=== PATIENT | male | born 1985 | race Hispanic/Latino ===

== ENCOUNTER 2022-04-26 14:45 | Emergency (ER) | payer OTHER ==
[~2022-04-26] VITALS: Ht 172.7 cm; Wt 81.6 kg
[2022-04-26 16:30] VITALS: BP 145/91
== END 2022-04-26 17:46 | disposition left against medical advice (07) ==
LOC: EDH 14:45
DX: L02.31 Cutaneous abscess of buttock (principal); Z53.21 Procedure and treatment not carried out due to patient leaving prior to being seen by health care provider

== ENCOUNTER 2022-06-11 23:48 | Emergency (ER) | payer OTHER ==
[2022-06-12] MEDS ORDERED: IBUP-1493 PO (01:17)
[2022-06-12] MEDS ORDERED: AMOX1TAB16 PO (01:17)
[2022-06-12] MEDS ORDERED: VANCOMYCIN 1G/250ML KIT 250 ML IV ONE ×2 (01:30→02:10)
[2022-06-12] MEDS ORDERED: 0.9%NACL 1000ML 2,500 ML IV ONE (01:30)
[2022-06-12] MEDS ORDERED: ZOSYN 3.375GM +NS 50ML IVPB ONE (01:30)
[2022-06-12] MEDS ORDERED: KETOROLAC 30MG VIAL (30MG/ML) ONE (02:11)
[2022-06-12 02:15] LABS: BASOPHILS % (AUTO) 0.5 % (0.0-5.0); EOSINOPHILS % (AUTO) 1.3 % (0.0-8.0); HEMATOCRIT 50.8 % (42-54); LYMPHOCYTES % (AUTO) 14.7 % (21.0-51.0); MEAN CORPUSCULAR HEMOGLOBIN 30.1 pg (27.0-33.0); MEAN CORPUSCULAR HGB CONC 33.9 g/dL (32.0-36.0); MONOCYTES % (AUTO) 5.4 % (3.0-13.0); NEUTROPHILS % (AUTO) 77.6 % (40.0-77.0); PLATELET COUNT (AUTO) 360 K/uL (130-400); RED BLOOD CELL COUNT(AUTO) 5.71 MIL/uL (4.50-6.20); RED CELL DISTRIBUTION WIDTH 11.9 % (11.0-15.5); WHITE BLOOD COUNT (AUTO) 15.2 K/uL (4.8-10.8)
[2022-06-12] MEDS ORDERED: ONDANSETRON 4MG INJ ONE (02:16)
[2022-06-12 02:28] LABS: CREATININE 1.1 mg/dL (0.5-1.5); POTASSIUM 3.2 mmol/L (3.5-5.1)
[2022-06-12] MEDS ORDERED: ONDANSETRON 4MG INJ IVP ONE (02:30)
[2022-06-12] MEDS ORDERED: KETOROLAC 30MG VIAL (30MG/ML) IVP ONE (02:30)
[2022-06-12 02:32] LABS: ALBUMIN 4.7 g/dL (3.5-5.0); APPEARANCE,URINE CLEAR (CLEAR); BILIRUBIN,URINE NEGATIVE (NEGATIVE); COLOR,URINE LIGHT-YELLOW (YELLOW); GLUCOSE, URINE (UA) NEGATIVE (NEGATIVE); KETONES,URINE NEGATIVE (NEGATIVE); LEUKOCYTE ESTERASE ,URINE NEGATIVE Leu/uL (NEGATIVE); NITRATE,URINE NEGATIVE (NEGATIVE); OCCULT BLOOD,URINE NEGATIVE (NEGATIVE); PROTEIN,URINE NEGATIVE (NEGATIVE); TOTAL PROTEIN, SERUM 10.2 g/dL (6.0-8.3); UROBILINOGEN,URINE 0.2 mg/dL (0.2-1.0)
[2022-06-12 04:28] VITALS: BP 128/76
== END 2022-06-12 04:27 | disposition home or self-care (01) ==
LOC: EDH 23:48
DX: L03.116 Cellulitis of left lower limb (principal); M25.552 Pain in left hip
CPT/HCPCS: 99284; 82550; 80053; 85025; 87040 ×2; 87088; 83605; 81003; 36415; 96365; 96375; J7030; J2405; J1885; J2543; J3370

== ENCOUNTER 2023-09-08 06:10 | Inpatient (IN) | payer OTHER ==
[~2023-09-08] VITALS: Ht 172.7 cm; Wt 81.6 kg
[~2023-09-08 06:10] MED LIST: AMOX1TAB16 PO; IBUP-1493 PO
[2023-09-08] MEDS: 0.9%NACL 1000ML 1,983 ML IV ONE (07:06)
[2023-09-08 07:19] LABS: BASOPHILS # (AUTO) 0.03 K/uL (0.00-0.20); BASOPHILS % (AUTO) 0.3 % (0.0-5.0); EOSINOPHILS # (AUTO) 0.06 K/uL (0.00-0.70); EOSINOPHILS % (AUTO) 0.5 % (0.0-8.0); HEMATOCRIT 40.4 % (42-54); IMMATURE GRANULOCYTE ABSOLUTE 0.05 K/uL (0-1); LYMPHOCYTES # (AUTO) 1.8 K/uL (1.0-4.8); LYMPHOCYTES % (AUTO) 15.5 % (21.0-51.0); MEAN CORPUSCULAR HEMOGLOBIN 30.5 pg (27.0-33.0); MEAN CORPUSCULAR HGB CONC 34.4 g/dL (32.0-36.0); MEAN CORPUSCULAR VOLUME 88.6 fL (79-99); MONOCYTES % (AUTO) 8.6 % (3.0-13.0); NEUTROPHILS # (AUTO) 8.4 K/uL (1.8-7.7); NEUTROPHILS % (AUTO) 74.7 % (40.0-77.0); PLATELET COUNT (AUTO) 192 K/uL (130-400); RED BLOOD CELL COUNT(AUTO) 4.56 MIL/uL (4.50-6.20); RED CELL DISTRIBUTION WIDTH 11.8 % (11.0-15.5); WHITE BLOOD COUNT (AUTO) 11.3 K/uL (4.8-10.8)
[2023-09-08 07:30] LABS: ALCOHOL, BLOOD < 3 mg/dL (0-10); CARBON DIOXIDE 28 mmol/L (21-32); CHLORIDE 105 mmol/L (101-111); CREATININE 0.9 mg/dL (0.5-1.3); GLOMERULAR FILTR. RATE CALC 114 mL/min (>90); GLUCOSE,RANDOM 99 mg/dL (70-105); POTASSIUM 3.2 mmol/L (3.5-5.1); SODIUM SERUM 141 mmol/L (136-145); UREA NITROGEN, BLOOD 6 mg/dL (7-18)
[2023-09-08] MEDS: ZOSYN 3.375GM +NS 50ML IV ONE (08:04)
[2023-09-08 08:24] VITALS: O2SAT 100
[2023-09-08] MEDS ORDERED: VANCOMYCIN KIT 1 GM/250 ML IV.KIT IV SCH (08:30)
[2023-09-08] MEDS ORDERED: KCL 20 MEQ ERTAB PO PRN (08:30)
[2023-09-08] MEDS ORDERED: POTASSIUM CHLORIDE 10% ELIXIR 20 MEQ/15 ML UDCUP PO PRN (08:30)
[2023-09-08] MEDS ORDERED: VANCOMYCIN PROTOCOL PER PHARMACY IV SCH (08:30)
[2023-09-08] MEDS ORDERED: ACETAMINOPHEN 325 MG TAB PO PRN (08:30)
[2023-09-08] MEDS ORDERED: 0.9%NACL 50ML IV SCH (08:30)
[2023-09-08] MEDS ORDERED: KETOROLAC 15MG/ML VIAL (15MG/ML) IV PRN (08:30)
[2023-09-08] MEDS ORDERED: POTASSIUM CHLORIDE 20MEQ/100ML 100 ML IV PRN (08:30)
[2023-09-08] MEDS ORDERED: ONDANSETRON 4MG INJ IVP PRN (08:30)
[2023-09-08] MEDS: VANCOMYCIN KIT 1 GM/250 ML IV.KIT IV ONE (08:31)
[2023-09-08] MEDS ORDERED: FAMOTIDINE 20MG TAB PO SCH (09:00)
[2023-09-08] MEDS ORDERED: VANCOMYCIN 1.5 GM/250 ML IV SCH (09:00)
[2023-09-08 09:30] VITALS: BP 137/78; PULSE 108; RESP 20
[2023-09-08] MEDS ORDERED: ZOSYN 3.375GM +NS 50ML IVPB SCH (18:00)
== END 2023-09-08 10:26 | disposition left against medical advice (07) | DRG 603 ==
LOC: EDH 06:10 → EDHIP 08:10 → 4CH 09:30
PROVIDERS: ADMIT Hospitalist; ATTEND Hospitalist
DX: L03.113 Cellulitis of right upper limb (principal); T63.301A Toxic effect of unspecified spider venom, accidental (unintentional), initial encounter; Z53.29 Procedure and treatment not carried out because of patient's decision for other reasons
CPT/HCPCS: 36415; 80048; 83605; 85025; 96365; G0378; J2543; J7030; J3370